=== PATIENT | male | born 1995 | race Caucasian/White ===

== ENCOUNTER 2021-04-23 06:41 | Day surgery (SDC) | payer MEDICAID ==
[2021-04-23] MEDS ORDERED: Bupivacaine 0.5% 30 ML SDV ONE (06:52)
[2021-04-23] MEDS ORDERED: Midazolam 1 MG/ML 2 ML SDV ONE (07:25)
[2021-04-23] MEDS ORDERED: fentaNYL 100 MCG/2 ML SDV ONE ×3 (07:25→09:36)
[2021-04-23] MEDS ORDERED: Propofol 200 MG/20 ML SDV ONE (07:25)
[2021-04-23] MEDS ORDERED: Ondansetron 4 MG/2 ML SDV ONE (07:27)
[2021-04-23] MEDS ORDERED: Dexamethasone 4 MG/ML SDV ONE (07:27)
[2021-04-23] MEDS ORDERED: Nozin Nasal Sanitizer NASBOTH ONE (07:30)
[2021-04-23] MEDS ORDERED: Lactated Ringers 1,000 ML IV SCH (07:30)
[2021-04-23] MEDS ORDERED: ceFAZolin 2 GM in Premix Bag 1 BAG IV ONE (08:15)
[2021-04-23] MEDS ORDERED: Ketorolac 30 MG/ML SDV ONE (09:34)
[2021-04-23] MEDS ORDERED: Acetaminophen/HYDROcodone 325-5 MG Tab PO PRN (11:39)
[2021-04-23 13:08] VITALS: BP 121/75; PULSE 78
--- NOTE | 2021-05-05 15:46 | OR ---
DATE OF PROCEDURE: 04/23/2021 SURGEON: Slick Briggs MD PREOPERATIVE DIAGNOSIS: Lateral meniscus tear of left knee. POSTOPERATIVE DIAGNOSES: 1. Lateral meniscus tear of left knee, degenerative free edge and cleavage midbody. 2. Loose body, left knee. PROCEDURE PERFORMED: Arthroscopy of left knee with debridement and repair of lateral meniscus and removal of loose body. ANESTHESIA: General. INDICATIONS: Vaughn is a 25-year-old gentleman who is having persistent lateral knee pain with activity, particularly kneeling, squatting, and pivoting. Examination and imaging are consistent with a tear of the lateral meniscus. He now presents for arthroscopy with partial meniscectomy versus repair. Risks, benefits, and potential complications of the procedure were discussed. DESCRIPTION OF PROCEDURE: After adequate anesthesia was obtained, the patient was placed supine with a tourniquet about the left upper thigh. The left leg was prepped and draped in a sterile fashion. The leg was exsanguinated and tourniquet inflated to 300 mmHg pressure. Standard inferior medial and lateral portals were established. The scope was introduced laterally, and the patellofemoral joint was inspected. This revealed intact articular cartilage in the trochlear groove and patella. Moving into the medial compartment, a loose piece of cartilage was present which appeared to be a portion of the meniscus. This was removed with the shaver. The articular cartilage in the femoral condyle tibial plateau was intact as was the medial meniscus. ACL and PCL were intact. Moving into the lateral compartment, degenerative fraying of the free edge was noted. A shaver was used to debride this which revealed a deeper cleavage tear into the periphery in the midbody of the meniscus. This was lightly debrided with a shaver and 2 [employer] meniscal anchors were placed in a vertical mattress-type fashion. One was placed slightly anterior, cinched down, and cut; second place more posteriorly. A probe was then introduced and used to explore the repair, which was found to be very stable. The knee was inspected once again. No other loose bodies or other abnormalities were identified. The knee was drained. The scope was withdrawn. The port sites were closed in a standard fashion, infiltrated with Marcaine, and a sterile dressing was applied. The patient tolerated the procedure very well. There were no complications. He was taken from the operating room in stable condition. Slick Briggs MD /[id number]
== END 2021-04-23 13:00 | disposition home or self-care (01) ==
LOC: JP.SDS 06:41
PROVIDERS: ATTEND Specialist
DX: S83.282A Other tear of lateral meniscus, current injury, left knee, initial encounter (principal); M23.42 Loose body in knee, left knee; X58.XXXA Exposure to other specified factors, initial encounter; Z98.890 Other specified postprocedural states; Z91.048 Other nonmedicinal substance allergy status
CPT/HCPCS: 29882; 36415; 80048; 85025; A9270; C1713; J0690; J1100; J1885; J2250; J2405; J2704; J3010; J3490; J7120